=== PATIENT | male | born 1965 | race Caucasian/White ===

== ENCOUNTER 2023-11-18 10:41 | Emergency (ER) | payer BC, SELFPAY ==
--- NOTE | 2023-11-18 10:49 | CT_ITS ---
PROCEDURE INFORMATION: Exam: CT Chest With Contrast; Diagnostic Exam date and time: 11/18/2023 11:27 AM Age: 58 years old Clinical indication: Other: Left posterior/superior soft tissue abscess TECHNIQUE: Imaging protocol: Diagnostic computed tomography of the chest with contrast. Radiation optimization: All CT scans at this facility use at least one of these dose optimization techniques: automated exposure control; mA and/or kV adjustment per patient size (includes targeted exams where dose is matched to clinical indication); or iterative reconstruction. Contrast material: ISOVUE; Contrast volume: 75 ml; Contrast route: IV; COMPARISON: No relevant prior studies available. FINDINGS: Lungs: Unremarkable. No consolidation. No masses. Pleural spaces: Unremarkable. No pneumothorax. No pleural effusion. Heart: Unremarkable. No cardiomegaly. No pericardial effusion. Lymph nodes: Calcified pretracheal and right hilar lymph nodes. No enlarged adenopathy. Vasculature: Unremarkable. No aortic aneurysm. Kidneys and ureters: Incompletely seen right renal calcification at 8 mm. No evidence of hydronephrosis. Bones/joints: Unremarkable. No acute fracture. Soft tissues: There is a cystic lesion possibly a subcutaneous cyst measuring 25 x 27 mm left upper posterior back. Just below that, however, there is an amorphous collection with air involving the subcutaneous tissues spanning at least 90 x 41 x 98 mm. Due to the fact this is air in it this could be necrotizing fasciitis/abscess. This collection does extend to the deep back muscles and involvement of the muscle on the left is questioned. IMPRESSION: 1. Large amorphous fluid collection with air left upper back extending to and possibly involving the deep back musculature. 2. THIS REPORT CONTAINS FINDINGS THAT MAY BE CRITICAL TO PATIENT CARE. The findings were verbally communicated by me to Petr Steward at 12:22 PM EST on 11/18/2023. The findings were acknowledged and understood.
--- NOTE | 2023-11-18 10:50 | HMH.EDGENADL ---
Discharge Plan Disposition Chief Complaint: Skin/Abscess/Foreign Body Referrals Follow up/Referrals: Provider,Referral, [Primary Care Provider] - See instructions Clinical Impressions Clinical Impression: Necrotizing soft tissue infection, Pyomyositis Instructions Patient Instructions: DI for Skin Abscess Discharge ED Provider: Petr Steward General Adult HPI General Chief complaint: Skin/Abscess/Foreign Body Stated complaint: possibly boil on back Time Seen by Provider: 11/18/23 10:44 History of Present Illness HPI narrative: 58-year-old male no relevant medical history presenting with lesion on back. Patient states that 2 days prior to this visit, he started having swelling and drainage from a spot on his upper, left portion of his back. Malodorous, tender, draining purulent fluid. Was on vacation in [place], so wanted to wait till he came back to [place] to get evaluated. Received antibiotics and has been on clindamycin for 1 day at this point. Denies fevers, chills, nausea or vomiting. He is having intermittent cough that started yesterday as well. Related Data Allergies Allergy/AdvReac Type Severity Reaction Status Date / Time No Known Allergies Allergy Verified 11/18/23 11:06 [facility] Disclaimer: The information contained in this section may have been updated after the patient was seen, as this information can be updated by other users. Social History Smoking Status: Never smoker alcohol intake: never current occupational status: employed Travel in the last 8 weeks: Inside the [place] ROS Obtained: Yes All systems reviewed & no additional complaints except as documented Physical Exam General General appearance: alert and in no apparent distress Head Head exam: atraumatic and normocephalic Eye Eye exam: Present normal appearance, PERRL and EOMI ENT ENT exam: Present mucous membranes moist Neck Neck exam: Present normal inspection, full ROM and trachea midline Respiratory Respiratory exam: Absent respiratory distress, wheezes, stridor, accessory muscle use or prolonged expiratory phase Cardiovascular Cardiovascular exam: Present normal rhythm Abdominal Exam Abdominal exam: Present soft; Absent distention, tenderness, guarding, rebound or rigidity Extremities Exam Extremities exam: Absent edema Back Exam Back 1 view image: 1. 6 cm x 5 cm erythematous, tender, fluctuant, purulent soft tissue lesion on patient's left/posterior/superior back near left scapula. Neurological Exam Neurological exam: Present alert, oriented X3, CN II-XII intact and normal gait; Absent motor sensory deficit Skin Skin exam: Present warm and dry; Absent diaphoresis or erythema Medical Decision Making Medical Records Medical records reviewed: Yes I reviewed the patient's medical records. Epi Inquiry Pt receiving controlled substance: No Epi was queried for this patient: No Vital Signs: 11/18/23 10:53 Temperature 98.4 F Temperature Source Oral Pulse Rate [Left] 94 H Respiratory Rate 16 Blood Pressure [Right Arm] 134/91 H Blood Pressure Mean [Right Arm] 105 Blood Pressure Source [Right Arm] Automatic Cuff Blood Pressure Position [Right Arm] Sitting 02 Sat by Pulse Oximetry 98 Oxygen Delivery Method Room Air Lab Data Lab Results 11/18/23 10:56: WBC 7.2, RBC 4.57 L, Hgb 14.0 L, Hct 43.7, MCV 95.6 H, MCH 30.5, MCHC 31.9, RDW 13.0, Plt Count 314, MPV 7.8, Neut % (Auto) 75.8, Lymph % (Auto) 13.6, [place] % (Auto) 7.6, Eos % (Auto) 2.5, Baso % (Auto) 0.5, Neut # (Auto) 5.4, Lymph # (Auto) 1.0, [place] # (Auto) 0.5, Eos # (Auto) 0.2, Baso # (Auto) 0.0, Sodium 142, Potassium 3.8, Chloride 106, Carbon Dioxide 31 H, Anion Gap 8.8, BUN 9, Creatinine 0.90, Estimated Creat Clear 115, Estimated GFR 87, Est GFR ( Amer) 106, Glucose 116 H, Calcium 8.6, Total Bilirubin 0.5, AST 28, ALT 33, Alkaline Phosphatase 58, Total Creatine Kinase 55, Total Protein 7.0, Albumin 3.7, Globulin 3.3 H, Albumin/Globulin Ratio 1.1 11/18/23 11:59: Lactate 1.5 11/18/23 10:56 11/18/23 10:56 Orders (Tests/Meds): ED MEDICATIONS Generic Name Dose Route Start Last Admin Trade Name Freq PRN Reason Stop Dose Admin Clindamycin Phosphate 900 mg in 50 mls @ 100 mls/hr 11/18/23 12:22 Clindamycin 900mg/50ml D5w Premix IV 11/18/23 12:51 ONCE ONE Vancomycin/PEG/NADA/Lysine/Water 1.75 gm in 350 mls @ 175 mls/hr 11/18/23 13:00 Vancomycin 1.75gm/350ml (Peg) Premix IV 11/28/23 12:59 Q12H [facility] Miscellaneous 1 each 11/18/23 12:00 Vancomycin Consult Request NOTAPPLIC 12/18/23 11:59 CONSULT PHARMACY [facility] Sodium Chloride 10 ml 11/18/23 11:18 Sodium Chloride 0.9% 10ml Flush Syringe IV 12/18/23 11:17 NEEDED PRN Maintain IV Site Sodium Chloride 10 ml 11/18/23 11:31 11/18/23 11:32 Sodium Chloride 0.9% 10ml Syr (Rad Only) IV 12/18/23 11:30 10 ml NEEDED PRN Administration Maintain IV Site Discontinued Medications Generic Name Dose Route Start Last Admin Trade Name Freq PRN Reason Stop Dose Admin Acetaminophen 1,000 mg 11/18/23 10:55 11/18/23 11:03 Acetaminophen 1,000mg/100ml Vial IV 11/18/23 10:56 1,000 mg ONCE ONE Administration Ampicillin Sodium/Sulbactam 100 mls @ 200 mls/hr 11/18/23 11:51 11/18/23 12:23 Sodium 3 gm/ Sodium Chloride IV 11/18/23 11:52 200 mls/hr ONCE ONE Administration Iopamidol 75 ml 11/18/23 11:31 11/18/23 11:32 Iopamidol-370 (76%);100ml Bottle IV 11/18/23 11:32 75 ml ONCE ONE Administration Ketorolac Tromethamine 15 mg 11/18/23 10:55 11/18/23 11:03 Ketorolac 30mg/Ml Vial IV 11/18/23 10:56 15 mg ONCE ONE Administration ORDERS Category Date Time Status CT chest w con Stat Cat Scan 11/18/23 10:49 Completed CBC w/Auto Diff [Complete Blood Count Auto Diff] Stat Lab 11/18/23 10:56 Completed CK [Creatine Kinase] Stat Lab 11/18/23 10:56 Completed CMP [Comprehensive Metabolic Panel] Stat Lab 11/18/23 10:56 Completed Lactic Acid Stat Lab 11/18/23 11:59 Completed Blood Culture Stat Micro 11/18/23 11:59 Received Medical Decision Narrative: 58-year-old male no relevant medical history presenting with lesion on back. Patient states that 2 days prior to this visit, he started having swelling and drainage from a spot on his upper, left portion of his back. Malodorous, tender, draining purulent fluid. Was on vacation in [place], so wanted to wait till he came back to [place] to get evaluated. Received antibiotics and has been on clindamycin for 1 day at this point. Denies fevers, chills, nausea or vomiting. He is having intermittent cough that started yesterday as well. History was obtained via conversation with patient. On arrival, patient hemodynamically stable, alert, oriented x4, appropriate, GCS 15, moving all extremities spontaneously, pupils equal and reactive to light. Full physical exam performed and significant for erythematous, tender, fluctuant, malodorous sick centimeter by 5 cm lesion on left side of back near left scapula. Draining malodorous purulent discharge with application of pressure. Patient afebrile, normotensive, nontachycardic. Differential includes abscess, cellulitis, osteomyelitis, among others. Patient was given Toradol and IV Tylenol, vancomycin and Unasyn of for symptomatic management and correction of underlying abnormalities. Workup independently interpreted and significant for no leukocytosis. Chemistry normal, including sodium at 142. Lactate 1.5. Glucose only mildly elevated at 116. CK still pending at time of transfer. Chest CT was independently interpreted and significant for large pyogenic fluid collection on the left side of the back that appears to be involving muscle and deep tissues concerning for developing necrotizing soft tissue infection. See radiology read for full review of final results. On reevaluation, clindamycin was added on for further coverage. General surgery was contacted. [facility], recommended transfer. [facility] was contacted for further evaluation, they graciously excepted transfer. Given patient presentation, workup, history, this most likely represents necrotizing soft tissue infection versus pyomyositis of the back musculature due to complicated soft tissue infection, likely MRSA. Because patient high risk for clinical decompensation if discharged, deemed appropriate for transfer and inpatient admission. Results were relayed to patient who voiced understanding and patient was agreeable to transfer, inpatient admission, and management. Patient was graciously accepted and transferred to [facility] for further definitive management, under Dr. Deal. Critical Care Critical Care Time Critical Care Time: Yes (ID) Attestation: On 11/18/23, the high probability of a clinically significant, sudden or life threatening deterioration of the following system(s) required my full and direct attention, intervention and personal management. The time I documented below is in addition to time spent performing reported procedures but includes the following listed in this critical care notation. Total Time Total Critical Care Time: 45
[2023-11-18 10:53] VITALS: BP 134/91; PULSE 94; RESP 16; TEMP 36.9; O2SAT 98; BMI 27.1
[2023-11-18] MEDS: KETOROLAC 30MG/ML VIAL 15 MG IV (11:03)
[2023-11-18] MEDS: ACETAMINOPHEN 1,000MG/100ML VIAL 1000 MG IV (11:03)
[2023-11-18 11:06] LABS: Basophils % 0.5 % (0.1-2.0); Eosinophils # 0.2 K/mm3 (0.0-0.4); Eosinophils % 2.5 % (0.1-12.0); Hematocrit 43.7 % (42.0-52.0); Lymphocytes % 13.6 % (10-50); Mean Corpuscular HGB Conc 31.9 g/dL (31.8-35.4); Mean Corpuscular Hemoglobin 30.5 pg (27.0-31.2); Mean Corpuscular Volume 95.6 fl (80-94); Mean Platelet Volume 7.8 fl (7.4-10.4); Monocytes # 0.5 K/mm3 (0.1-1.0); Monocytes % 7.6 % (1.7-9.3); Neutrophils # 5.4 K/mm3 (1.8-7.8); Neutrophils % 75.8 % (37.0-80.0); Platelet Count 314 K/mm3 (142-424); Red Blood Count 4.57 M/mm3 (4.60-6.20); White Blood Count 7.2 K/mm3 (4.8-10.8)
[2023-11-18 11:12] LABS: Alanine Aminotransferase 33 U/L (12-78); Albumin Level 3.7 g/dl (3.5-5.0); Albumin/Globulin Ratio 1.1 (1.1-1.8); Alkaline Phosphatase 58 U/L (38-126); Anion Gap 8.8 mEq/L (5-15); Aspartate Amino Transferase 28 U/L (17-59); Bilirubin,Total 0.5 mg/dl (0.2-1.3); Blood Urea Nitrogen 9 mg/dl (9-20); Calcium 8.6 mg/dl (8.4-10.2); Carbon Dioxide 31 mmol/L (22.0-30.0); Chloride 106 mmol/L (98-107); Creatinine Clearance Estimated 115 mL/min (50-200); Estimated Glomerular Filt Rate 87 ml/min (>60); GFR (African American) 106 ML/MIN (>60); Globulin 3.3 g/dL (1.3-3.2); Glucose 116 mg/dl (74-100); Potassium 3.8 mmoL/L (3.5-5.1); Sodium 142 mmol/L (136-145)
[2023-11-18] MEDS: SODIUM CHLORIDE 0.9% 10ML SYR (RAD ONLY) 10 ML IV (11:32)
[2023-11-18] MEDS: IOPAMIDOL-370 (76%);100ML BOTTLE 75 ML IV (11:32)
--- NOTE | 2023-11-18 12:22 | PC.NURSE ---
Dr. Britton paged
[2023-11-18] MEDS: AMPICILLIN/SULBACTAM 3 GM in 0.9 % SODIUM CHLORIDE 100 ML IV (12:23)
[2023-11-18 12:25] LABS: Creatine Kinase 55 U/L (55-170)
--- NOTE | 2023-11-18 12:25 | PC.NURSE ---
Dr. Steward speaking with Dr. Britton
[2023-11-18 12:29] LABS: Lactic Acid 1.5 mmol/L (0.7-2.1)
--- NOTE | 2023-11-18 12:33 | PC.NURSE ---
call made to RAD to [facility] to [facility] and get a disc burnt
--- NOTE | 2023-11-18 12:34 | PC.NURSE ---
Dr. Steward speaking with [facility] about possible transfer
[2023-11-18 12:41] VITALS: BP 137/86; PULSE 85; O2SAT 98
[2023-11-18] MEDS: CLINDAMYCIN PHOSPHATE/D5W 900 MG/50 ML PIGGYBACK 100 MG IV (12:47)
[2023-11-18] MEDS: VANCOMYCIN CONSULT REQUEST 1 EACH NOTAPPLIC (12:50)
--- NOTE | 2023-11-18 12:51 | PC.NURSE ---
Dr. Steward at [facility] to update pt on POC
--- NOTE | 2023-11-18 12:54 | P.CONPHA_ITS ---
Pharmacy Consult Date: 11/18/23 Time: 12:54 Referring provider: DR. LOW Reason for Consult:: VANCOMYCIN DOSING Allergies Allergy/AdvReac Type Severity Reaction Status Date / Time No Known Allergies Allergy Verified 11/18/23 11:06 New Prescriptions to Start Prescriptions: Height: 1.8 m Weight: 88.451 kg Laboratory Results:: Laboratory Results - last 24 hr 11/18/23 10:56: WBC 7.2, RBC 4.57 L, Hgb 14.0 L, Hct 43.7, MCV 95.6 H, MCH 30.5, MCHC 31.9, RDW 13.0, Plt Count 314, MPV 7.8, Neut % (Auto) 75.8, Lymph % (Auto) 13.6, [place] % (Auto) 7.6, Eos % (Auto) 2.5, Baso % (Auto) 0.5, Neut # (Auto) 5.4, Lymph # (Auto) 1.0, [place] # (Auto) 0.5, Eos # (Auto) 0.2, Baso # (Auto) 0.0, Sodium 142, Potassium 3.8, Chloride 106, Carbon Dioxide 31 H, Anion Gap 8.8, BUN 9, Creatinine 0.90, Estimated Creat Clear 115, Estimated GFR 87, Est GFR ( Amer) 106, Glucose 116 H, Calcium 8.6, Total Bilirubin 0.5, AST 28, ALT 33, Alkaline Phosphatase 58, Total Creatine Kinase 55, Total Protein 7.0, Albumin 3.7, Globulin 3.3 H, Albumin/Globulin Ratio 1.1 11/18/23 11:59: Lactate 1.5 Assessment and Plan Assessment and plan all Dx Assessment and Plan for all problems:: Pharmacokinetic dosing service Objective: Patient: Floor: Age: 58 yo Serum creatinine: 0.9 mg/dL Height: 70.9 Inches Weight (kg): 88.5 Assessment: IBW (kg): 75.07 Dosing wt(kg): 88.5 Estimated Creatinine clearance (ml/min): 97.3 CRCL method: Cockcroft and Gault using ibw(default). Drug selected: Vancomycin Loading dose (mg): 0 Vd (liters): 75.2 (factor used: 0.85 L/kg) Rodney (hr-1): 0.085 Half life (hrs): 8.15 Recommended dose: 1750 mg Interval: 12 hrs Infusion time (hrs): 2.0 Predicted peak (mcg/mL): 33.5 Predicted trough (mcg/mL): 14.32 Total body weight is being used for vancomycin dosing. Recommendations: Give Vancomycin 1750 mg q 12 hrs with an expected Cpeak of 33.5 mcg/ml and an expected Ctrough of 14.32 mcg/ml ----Vanco only - ignore for aminoglycosides----- CLvanco= 6.39 L/hr AUC 0-24 /CHRISTI Data: CHRISTI 0.5 mcg/mL: AUC/CHRISTI: 1095.5 CHRISTI 1.0 mcg/mL: AUC/CHRISTI: 547.7 --------- CHRISTI 1.5 mcg/mL: AUC/CHRISTI: 365.2 CHRISTI 2.0 mcg/mL: AUC/CHRISTI: 273.9
--- NOTE | 2023-11-18 12:56 | PC.NURSE ---
Report called to [facility] ED to Nicolasa SOLOMON
[2023-11-18] MEDS: VANCOMYCIN/WATER FOR INJ (PEG) 1.75 GM/350 ML PIGGYBACK IV (12:58)
[2023-11-18 13:20] VITALS: BP 133/80; PULSE 81; RESP 16; TEMP 36.8
== END 2023-11-18 13:25 | disposition short-term general hospital (02) ==
PROVIDERS: Emergency Provider Emergency Medicine
DX: L02.212 Cutaneous abscess of back [any part, except buttock and flank] (principal); M79.89 Other specified soft tissue disorders
CPT/HCPCS: 71260; 80053; 82550; 83605; 85025; 87040; 96365; 96366; 96367; 96375; 99285; J0131; Q9967

== ENCOUNTER 2024-11-21 08:42 | Outpatient (CLI) | payer BC, SELFPAY ==
[2024-11-21 09:04] VITALS: BMI 26.4
[2024-11-21 09:15] LABS: Basophils # 0.1 K/mm3 (0-0.2); Basophils % 1.1 % (0.1-2.0); Eosinophils # 0.2 K/mm3 (0.0-0.4); Eosinophils % 3.4 % (0.1-12.0); Hematocrit 43.8 % (42.0-52.0); Hemoglobin 14.9 g/dL (14.1-18.0); Lymphocytes # 1.7 K/mm3 (0.7-4.5); Lymphocytes % 26.7 % (10-50); Mean Corpuscular Hemoglobin 30.2 pg (27.0-31.2); Mean Corpuscular Volume 88.7 fl (80-94); Mean Platelet Volume 9.7 fl (7.4-10.4); Monocytes # 0.5 K/mm3 (0.1-1.0); Monocytes % 7.3 % (1.7-9.3); Neutrophils # 3.9 K/mm3 (1.8-7.8); Neutrophils % 61.3 % (37.0-80.0); Platelet Count 213 K/mm3 (142-424); Red Blood Count 4.94 M/mm3 (4.60-6.20); Red Cell Distribution Width 12.2 % (11.5-17.5); White Blood Count 6.4 K/mm3 (4.8-10.8)
[2024-11-21 09:25] LABS: Anion Gap 10.4 mEq/L (5-15); Blood Urea Nitrogen 16 mg/dl (9-20); Calcium 9.2 mg/dl (8.4-10.2); Carbon Dioxide 29 mmol/L (22.0-30.0); Chloride 104 mmol/L (98-107); Creatinine Clearance Estimated 99 mL/min (50-200); Estimated Glomerular Filt Rate 77 ml/min (>60); GFR (African American) 93 ML/MIN (>60); Glucose 100 mg/dl (74-100); Potassium 4.4 mmoL/L (3.5-5.1); Sodium 139 mmol/L (136-145)
== END 2024-11-21 23:59 | disposition home or self-care (01) ==
LOC: PREOP 08:43
PROVIDERS: Visit Provider Surgery
DX: Z01.812 Encounter for preprocedural laboratory examination (principal)
CPT/HCPCS: 80048; 85025

== ENCOUNTER 2024-11-24 06:03 | Day surgery (SDC) | payer BC, SELFPAY ==
[2024-11-21 10:35] VITALS: BMI 26.4
[2024-11-24] VITALS (9 sets, daily range): BP systolic 132–149; BP diastolic 71–99; PULSE 72–100; RESP 16–24; TEMP 36.2–36.4; O2SAT 95–100
[2024-11-24] MEDS: 0.9 % SODIUM CHLORIDE 1000ML 1,000 ML 25 ML IV (06:33)
--- NOTE | 2024-11-24 06:52 | P.PNANES_ITS ---
[facility] Disclaimer: The information contained in this section may have been updated after the patient was seen, as this information can be updated by other users. Medical History History of patellar fracture Surgical History History of knee surgery Family History Other Family history of cancer Social History (Updated 11/24/24 @ 06:17 by Teresita Marroquin RN) Smoking Status: Never smoker alcohol intake: never substance use type: denies use current occupational status: retired Travel in the last 8 weeks: Inside the [facility] Anesthesia Checklist Patient Identification Patient Identification: Arm Band and Family Structural Data Admitted From: Home Planned Operative Procedure/s: Excision Left upper back cyst. Consent for Planned Operative Procedure(s) Verified: Yes Verified Documents: Surgical Consent and History and Physical NPO Status Verified Time NPO: 00:00 Additional verifications Patient : No Anesthesia Reactions: No Hx Blood Transfusions: No Blood Transfusion Reaction: No Cephalosporin Allergy: No Previous Colonoscopy: No Airway Assessment Mallampati Score:: Class II C-Spine Mobility Assessed: Yes TMJ Mobility Assessed: Yes Neurological Assessment Level of Consciousness: Awake, Alert, Appropriate and Follows Commands Hx Seizures: No Numbness or tingling in extremities: No Anesthesia Plan Anesthesia Risk discussed: Yes ASA Class: I Anesthesia Type: General
--- NOTE | 2024-11-24 06:59 | EXP.GEN.HP ---
HPI HPI HPI: Patient is a 59-year-old male otherwise healthy who presents for excision of cyst. He was a self-referral for a left cyst on the left shoulder blade area. He actually had presented to the emergency department on 11/18/2023 with findings of necrotizing soft tissue infection involving muscle of the left shoulder blade area requiring transfer to [facility] where he underwent incision and drainage and debridement. The area ultimately healed. Recently over the past several weeks he has noticed a palpable knot above this. He was concerned as he did not want to develop an infection in this. Denies any drainage. He was found to have his on examination approximately 4 cm noninfected sebaceous cyst. [facility] Disclaimer: The information contained in this section may have been updated after the patient was seen, as this information can be updated by other users. Medical History History of patellar fracture Surgical History History of knee surgery Family History Family history of cancer Social History (Updated 11/24/24 @ 06:54 by Kaden Whitehead CRNA) Smoking Status: Never smoker alcohol intake: never substance use type: denies use current occupational status: retired Travel in the last 8 weeks: Inside the [place] Have you lived/traveled outside US in past 30 days?: No Contact w/someone who lives/traveled outside US past 30 days?: No Exposure to someone with infectious disease in past 14 days?: No Do you have a fever (greater than 100.4 F or 38 C)?: No Have you tested positive for COVID-19: No Exposed to someone with COVID-19 in past 14 days?: No Do you have a sore throat?: No Do you have a cough?: No Do you have any weakness?: No Are you experiencing any nausea/vomitting?: No Do you have any diarrhea?: No Are you experiencing any unusual bleeding?: No Do you have any muscle aches/pain?: No Do you have any abdominal pain?: No Are you experiencing loss of taste or smell?: No Meds Home Medications and Allergies Home Medications ?Medication ?Instructions ?Recorded ?Confirmed ?Type No Known Home Medications 10/14/24 11/24/24 History New Prescriptions to Start Prescriptions: Allergies Allergy/AdvReac Type Severity Reaction Status Date / Time No Known Allergies Allergy Verified 11/24/24 06:15 Exam Data for Last 24 hours Vital signs and Labs for Last 24 Hours: Temp Pulse Resp BP Pulse Ox O2 Del Method 97.6 F 72 18 140/88 98 Room Air 11/24/24 06:16 11/24/24 06:16 11/24/24 06:16 11/24/24 06:16 11/24/24 06:16 11/24/24 06:16 I & O for Last 24 hours: Intake & Output 11/21/24 11/22/24 11/23/24 11/24/24 11:59 11:59 12:59 11:59 Weight 190 lb *Routine HEENT Exam Head: Present normocephalic Eye: Present EOMI ENT: Present mucous membranes moist *Routine Respiratory Exam Respiratory: Present CTA bilaterally *Routine Cardiovascular Exam Cardiovascular: Present RRR *Routine Abdominal Exam Abdominal: Present soft *Routine Rectal Exam Rectal:: deferred *Routine Genitalia Exam Genitalia:: deferred *Routine Skin Exam Comments: Findings consistent with 4 cm noninfected sebaceous cyst Assessment and Plan *Assessment and plan (1) Sebaceous cyst: Status: Acute Category: Medical Code(s): L72.3 - Sebaceous cyst Plan Plan for excision hopefully with primary closure
[2024-11-24] MEDS: CEFAZOLIN SODIUM 1GM ADV 1 GM IV (07:03)
[2024-11-24] MEDS: ROPIVACAINE 0.5% 30ML VIAL 150 MG (07:24)
[2024-11-24] MEDS: 0.9 % SODIUM CHLORIDE 50 ML IV (07:24)
[2024-11-24] MEDS: LIDOCAINE 1% 20ML MDV 20 ML (07:24)
--- NOTE | 2024-11-24 07:58 | P.OP_ITS ---
Date of procedure: 11/24/24 Pre-op Diagnosis:: Large sebaceous cyst on the back Post-op Diagnosis:: Same Procedure performed:: Excision of sebaceous cyst from the back (excisional length 4 cm) with intermediate complexity closure Surgeon:: Julian Calderon MD ELECTRIC MULE DRIVER:: Rick Whitehead Anesthesia: LMA Estimated blood loss (mL): 5 Operative findings:: Consistent with noninfected sebaceous cyst Operative note:: Consent was obtained patient was taken the operating room. He was given preoperative intravenous antibiotics. In the operating room he was placed in a supine position. He was repositioned in a lateral decubitus position. The area was prepped and draped in the standard surgical fashion. Lesion was marked with a skin marker for planned elliptical incision. Local anesthetic was infiltrated. Skin incision was made. Skin was rather thick with thickened dermis. Meticulous dissection was carried down to the cyst capsule. He had a rather large cyst capsule consistent with noninfected sebaceous cyst. Prolonged dissection was carried out circumferentially using mostly sharp dissection. There was some unavoidable spillage of caseous material from the cyst capsule. Skin ellipse with cyst capsule was passed off as specimen. Residual possible cyst wall was excised with electrocautery and sent with the specimen. Wound was irrigated. Hemostasis was achieved with electrocautery. Dermal tissues were reapproximated with interrupted 2-0 Vicryl. Skin was closed with interrupted 3- 0 nylon. Clean dry sterile dressing was applied. Condition: stable Disposition: PACU Complications:: None immediately apparent
--- NOTE | 2024-11-24 08:10 | EXP.ANES.I ---
[facility] Anesthesia Record Part I Anesthesia Record I Intake, IV Amount: 1,200 Hydration: Adequate Estimated blood loss (mL): 2 Urine output (mL): 0 Blood Products used (#): none Blood Pressure: 146/99 SaO2: 99 Pulse Rate: 99 Airway Patency: Patent Respiratory Rate: 24 Temperature: 97.1 F Patient is:: Drowsy and Stable
--- NOTE | 2024-11-25 09:30 | P.PNANES_ITS ---
[facility] Anesthesia Record Part II Anesthesia Record Part II Discharge Time: 08:33 Destination: Surgical Day Care (OP Surgery) PACU nurse assessment reviewed?: Yes Patient Condition:: Good Anesthesia Complications:: None Swallowing reflex intact?: Yes Airway Patency: Patent Cyanosis?: No Blood Pressure: 132/71 SaO2: 97 Respiratory Rate: 18 Pulse Rate: 91 Temperature: 97.4 F Mental Status: Alert & Oriented Pain level:: 0 Nausea and/or vomitting:: None Intake, IV Amount: 0 Hydration: Adequate
[2024-11-25 09:31] VITALS: BP 132/71; PULSE 91; RESP 18; TEMP 36.3; O2SAT 97
== END 2024-11-24 08:59 | disposition home or self-care (01) ==
PROVIDERS: Visit Provider Surgery
PROC: (CPT 11404; principal; 2024-11-24 07:30)
DX: L72.3 Sebaceous cyst (principal)
CPT/HCPCS: 11404; 12032; 96374; J0690; J1100; J2250; J2405; J3010; J7030; J7120